=== PATIENT | female | born 1950 | race Caucasian/White ===

== ENCOUNTER 2022-02-24 17:01 | Emergency (ER) | payer MEDICARE, BC ==
[2022-02-24] MEDS ORDERED: Metoclopramide 10 MG/2 ML SDV IVPUSH ONE (17:45)
[2022-02-24] MEDS ORDERED: HYDROmorphone 0.5 MG/0.5 ML Syringe IVPUSH ONE (17:45)
[2022-02-24] MEDS ORDERED: Lactated Ringers 1,000 ML IV SCH (17:45)
== END 2022-02-24 19:13 ==
LOC: SUPCPDRO 17:01 → JD.ED 17:01
DX: K56.609 Unspecified intestinal obstruction, unspecified as to partial versus complete obstruction (principal); C56.9 Malignant neoplasm of unspecified ovary; C78.6 Secondary malignant neoplasm of retroperitoneum and peritoneum; Z88.8 Allergy status to other drugs, medicaments and biological substances; Z20.822 Contact with and (suspected) exposure to COVID-19
CPT/HCPCS: 43752; 71045; 96374; 96375; 99285; J1170; J2765; J7120; U0002

== ENCOUNTER 2022-10-29 09:32 | Emergency (ER) | payer MEDICARE, BC | END 2022-10-29 12:40 | disposition home or self-care (01) | LOC: JD.ED 09:32 | DX: C56.9 Malignant neoplasm of unspecified ovary (principal); D69.6 Thrombocytopenia, unspecified; I10 Essential (primary) hypertension; Z86.73 Personal history of transient ischemic attack (TIA), and cerebral infarction without residual deficits; Z88.8 Allergy status to other drugs, medicaments and biological substances | CPT/HCPCS: 36415; 80053; 85025; 99284 ==

== ENCOUNTER 2023-08-26 11:01 | Inpatient (IN) | payer MEDICARE, BC ==
[2023-08-26] MEDS ORDERED: fentaNYL 100 MCG/2 ML SDV IVPUSH ONE (11:41)
[2023-08-26] MEDS ORDERED: Metoclopramide 10 MG/2 ML SDV IVPUSH ONE ×2 (11:41→13:53)
[2023-08-26] MEDS ORDERED: Dextrose 5%-0.9% NaCl 1,000 ML IV SCH (11:45)
[2023-08-26] MEDS ORDERED: fentaNYL 12 MCG/HR Transdermal Patch TRDERM SCH (12:00)
[2023-08-26] MEDS ORDERED: Iopamidol 612 MG/ML 100 ML Bottle IVPUSH ONE (12:13)
[2023-08-26 12:24] LABS: BASOPHILS ABSOLUTE AUTO 0.1 K/mm3 (0.0-0.2); BASOPHILS PERCENT AUTO 1.2 % (0.0-1.0); EOSINOPHILS ABSOLUTE AUTO 0.1 K/mm3 (0.0-0.4); EOSINOPHILS PERCENT AUTO 1.2 % (0.0-6.0); HEMATOCRIT 36.9 % (37.0-47.0); HEMOGLOBIN 12.2 gm/dl (12.0-16.0); IMMATURE GRAN ABSOLUTE AUTO 0.18 K/mm3 (0.00-0.05); IMMATURE GRAN PERCENT AUTO 1.7 % (0.0-0.4); LYMPHOCYTES ABSOLUTE AUTO 1.2 K/mm3 (1.0-4.8); LYMPHOCYTES PERCENT AUTO 11.4 % (24.0-44.0); MEAN CORPUSCULAR HEMOGLOBIN 28.8 pg (28.0-32.0); MEAN CORPUSCULAR HGB CONC 33.1 g/dl (32.0-36.0); MEAN PLATELET VOLUME 9.6 fl (9.4-12.3); MONOCYTES ABSOLUTE AUTO 0.5 K/mm3 (0.0-0.8); MONOCYTES PERCENT AUTO 4.3 % (0.0-8.0); NEUTROPHILS ABSOLUTE AUTO 8.6 K/mm3 (1.8-7.7); NEUTROPHILS PERCENT AUTO 80.2 % (41.0-71.0); NRBC ABSOLUTE 0.03 (0.00-0.02); NRBC PERCENT 0.3 % (0.0-0.2); PLATELET COUNT,PLT 247 K/mm3 (150-400); RED BLOOD CELL COUNT 4.24 M/mm3 (4.10-5.30); WHITE BLOOD CELL COUNT,WBC 10.73 K/mm3 (3.9-11.3)
[2023-08-26 12:44] LABS: INR 1.03
[2023-08-26 12:46] LABS: PTT,PARTIAL THROMBOPLSTIN TIME 25.1 SECONDS (21.7-31.4)
[2023-08-26 12:57] LABS: ALBUMIN 2.5 g/dl (3.4-5.0); ANION GAP 23.2 (5-15); BILIRUBIN TOTAL 0.7 mg/dL (0.2-1.0); BUN/CREATININE RATIO 18.3 (14-18); C-REACTIVE PROTEIN 2.8 mg/dL (<1.0); CALCIUM 9.3 mg/dL (8.5-10.1); CREATININE 1.2 mg/dL (0.55-1.02); EST CRCL DRUG DOSING (CG) 34.81 mL/min; MAGNESIUM 1.2 mg/dL (1.8-2.4); POTASSIUM,K 4.2 mEq/L (3.5-5.1); PROTEIN TOTAL,TP 4.9 g/dl (6.4-8.2)
[2023-08-26] MEDS ORDERED: Naloxone 0.4 MG/ML SDV IVPUSH PRN (15:28)
[2023-08-26] MEDS ORDERED: fentaNYL 100 MCG/2 ML SDV IVPUSH PRN (15:28)
[2023-08-26] MEDS: Cyclobenzaprine 10 MG Tab PO SCH (18:45)
[2023-08-26] MEDS: Pramipexole 0.5 MG Tab PO SCH (18:45)
[2023-08-26] MEDS: Lactated Ringers 1,000 ML IV SCH (19:00)
[2023-08-26 19:24] LABS: APPEARANCE,URINE CLEAR (Clear); BILIRUBIN,URINE 1+ (Negative); COLOR,URINE DARK YELLOW (Yellow); GLUCOSE,URINE NEGATIVE (Negative); KETONES,URINE 1+ (Negative); LEUKOCYTE ESTERASE,URINE NEGATIVE (Negative); NITRITE,URINE NEGATIVE (Negative); OCCULT BLOOD,URINE NEGATIVE (Negative); PROTEIN,URINE 1+ (Negative); UROBILINOGEN,URINE 0.2 (0.2-1.0)
[2023-08-26 19:32] LABS: BACTERIA,URINE FEW /hpf (FEW); FINE GRANULAR CASTS,URINE 0-5 /lpf (0-5); MUCUS,URINE FEW /hpf (FEW); RBC,URINE 0-5 /hpf (0-5); SQUAMOUS EPITHELIAL CELLS,UR NOT SEEN /hpf (0-5); WBC,URINE 0-5 /hpf (0-5)
[2023-08-26] MEDS: LORazepam 2 MG/ML SDV IVPUSH PRN (20:25)
[2023-08-27] MEDS: Pramipexole 0.5 MG Tab PO SCH (08:14)
[2023-08-27] MEDS: Cyclobenzaprine 10 MG Tab PO SCH ×2 (08:14→20:27)
[2023-08-27] MEDS: Acetaminophen 325 MG Tab PO PRN (09:31)
[2023-08-27] MEDS ORDERED: Metoclopramide 10 MG/2 ML SDV IVPUSH ONE (12:34)
[2023-08-27] MEDS ORDERED: fentaNYL 100 MCG/2 ML SDV IVPUSH PRN ×2 (12:35→12:43)
[2023-08-27] MEDS: Scopolamine 1.5 MG Transdermal Patch TRDERM PRN (15:18)
[2023-08-27] MEDS ORDERED: Metoclopramide 10 MG/2 ML SDV IVPUSH SCH (16:15)
[2023-08-27] MEDS: fentaNYL 100 MCG/2 ML SDV IVPUSH PRN (17:01)
[2023-08-27] MEDS: LORazepam 2 MG/ML SDV IVPUSH PRN (20:28)
[2023-08-27] MEDS: Lactated Ringers 1,000 ML IV SCH (20:28)
[2023-08-28] MEDS: Cyclobenzaprine 10 MG Tab PO SCH ×2 (09:13→20:16)
[2023-08-28] MEDS: Pramipexole 0.5 MG Tab PO SCH (09:14)
[2023-08-28] MEDS: fentaNYL 100 MCG/2 ML SDV IVPUSH PRN ×3 (10:12→18:08)
[2023-08-28] MEDS: Metoclopramide 10 MG/2 ML SDV IVPUSH PRN ×2 (12:28→18:12)
[2023-08-28] MEDS: Lactated Ringers 1,000 ML IV SCH (14:27)
[2023-08-28] MEDS: LORazepam 2 MG/ML SDV IVPUSH PRN (20:16)
[2023-08-29] MEDS: Lactated Ringers 1,000 ML IV SCH ×2 (03:14→19:00)
[2023-08-29] MEDS: Cyclobenzaprine 10 MG Tab PO SCH ×2 (09:15→20:52)
[2023-08-29] MEDS: Pramipexole 0.5 MG Tab PO SCH (09:15)
[2023-08-29] MEDS: Acetaminophen 325 MG Tab PO PRN ×2 (09:20→18:53)
[2023-08-29] MEDS: Metoclopramide 10 MG/2 ML SDV IVPUSH PRN ×2 (09:21→18:52)
[2023-08-29] MEDS: fentaNYL 100 MCG/2 ML SDV IVPUSH PRN (10:15)
[2023-08-29] MEDS ORDERED: fentaNYL 50 MCG/HR Transdermal Patch TRDERM SCH (10:30)
[2023-08-29] MEDS: oxyCODONE ER 20 MG TAB.ER PO SCH ×2 (11:05→21:58)
[2023-08-29] MEDS: oxyCODONE 5 MG Tab PO PRN ×2 (11:17→18:54)
[2023-08-29] MEDS: Polyethylene Glycol 3350 Powder 17 GM Packet PO SCH (18:16)
[2023-08-29] MEDS: Docusate Sodium 100 MG Cap PO SCH ×2 (18:16→20:52)
[2023-08-30] MEDS: Metoclopramide 10 MG/2 ML SDV IVPUSH PRN (00:53)
[2023-08-30] MEDS: Polyethylene Glycol 3350 Powder 17 GM Packet PO SCH ×3 (01:13→20:39)
[2023-08-30] MEDS ORDERED: Ondansetron 4 MG Tab.DIS PO PRN ×2 (03:23→07:33)
[2023-08-30] MEDS: oxyCODONE 5 MG Tab PO PRN (04:28)
[2023-08-30] MEDS: Acetaminophen 325 MG Tab PO PRN (04:29)
[2023-08-30] MEDS ORDERED: Ondansetron 4 MG in Sodium Chloride 0.9% 50 ML IV PRN (07:32)
[2023-08-30] MEDS ORDERED: Prochlorperazine 5 MG Tab PO PRN (07:33)
[2023-08-30] MEDS: Lactated Ringers 1,000 ML IV SCH ×2 (07:54→21:31)
[2023-08-30] MEDS: Ondansetron 4 MG/2 ML SDV IV PRN ×2 (07:55→21:28)
[2023-08-30] MEDS: Scopolamine 1.5 MG Transdermal Patch TRDERM PRN (07:55)
[2023-08-30] MEDS: Cyclobenzaprine 10 MG Tab PO SCH ×2 (09:27→20:41)
[2023-08-30] MEDS: Pramipexole 0.5 MG Tab PO SCH (09:28)
[2023-08-30] MEDS: Docusate Sodium 100 MG Cap PO SCH ×2 (09:28→20:40)
[2023-08-30] MEDS: oxyCODONE ER 20 MG TAB.ER PO SCH ×2 (09:30→21:30)
[2023-08-30] MEDS ORDERED: LORazepam 2 MG/ML SDV IVPUSH PRN (10:29)
[2023-08-31] MEDS: Cyclobenzaprine 10 MG Tab PO SCH (08:17)
[2023-08-31] MEDS: Docusate Sodium 100 MG Cap PO SCH (08:17)
[2023-08-31] MEDS: Polyethylene Glycol 3350 Powder 17 GM Packet PO SCH (08:17)
[2023-08-31] MEDS: Pramipexole 0.5 MG Tab PO SCH (08:17)
[2023-08-31] MEDS: oxyCODONE ER 20 MG TAB.ER PO SCH (10:10)
== END 2023-08-31 11:00 | disposition hospice, home (50) | DRG 951 ==
LOC: JD.ED 11:01 → JD.MS 15:23
PROVIDERS: ADMIT Internal Medicine; ATTEND Internal Medicine
DX: Z51.5 Encounter for palliative care (principal); C56.2 Malignant neoplasm of left ovary; C78.6 Secondary malignant neoplasm of retroperitoneum and peritoneum; E87.20 Acidosis, unspecified; Z66 Do not resuscitate; I10 Essential (primary) hypertension; K59.09 Other constipation; E88.A Wasting disease (syndrome) due to underlying condition; E83.42 Hypomagnesemia; E86.9 Volume depletion, unspecified; D64.9 Anemia, unspecified; Z88.8 Allergy status to other drugs, medicaments and biological substances; Z97.3 Presence of spectacles and contact lenses; Z86.73 Personal history of transient ischemic attack (TIA), and cerebral infarction without residual deficits; Z90.710 Acquired absence of both cervix and uterus; Z68.21 Body mass index [BMI] 21.0-21.9, adult; Z90.722 Acquired absence of ovaries, bilateral; Z90.49 Acquired absence of other specified parts of digestive tract
CPT/HCPCS: 36415; 51702; 71260; 71260-26; 74177; 74177-26; 80053; 81001; 82009; 82977; 83605; 83690; 83735; 83880; 85025; 85610; 85652; 85730; 86140; 93005; 93010; 96361; 96374; 96375; 96376; 99285; 99285-25; A9270-GY; J1642; J2060; J2405; J2765; J3010; J7042; J7120; Q0164; Q9967